=== PATIENT | male | born 1995 | race Caucasian/White ===

== ENCOUNTER 2016-10-13 21:39 | Emergency (ER) | payer SELFPAY ==
[2016-10-14] MEDS ORDERED: IBUPROFEN 600 MG TABLET ONE (00:04)
--- NOTE | 2016-10-14 08:13 | RAD ---
RIGHT HAND 3 VIEWS HISTORY: Right hand swelling after punching a wall. COMPARISONS: None. TECHNIQUE: Frontal, lateral, and oblique views of the right hand. ALIGNMENT: Grossly unremarkable. FRACTURE: Nondisplaced acute on chronic fracture of the fifth metacarpal. Posttraumatic deformity and remodeling from prior injury. SOFT TISSUES: Soft tissue swelling at ulnar and dorsal aspect. RADIOOPAQUE FOREIGN BODY: None. IMPRESSION: Nondisplaced acute on chronic fifth metacarpal fracture.
== END 2016-10-14 00:10 | disposition home or self-care (01) ==
LOC: ED 21:39
DX: S62.306A Unspecified fracture of fifth metacarpal bone, right hand, initial encounter for closed fracture (principal); W22.8XXA Striking against or struck by other objects, initial encounter; Y92.9 Unspecified place or not applicable
CPT/HCPCS: 73130; 99283 ×2; 29125; A9270